=== PATIENT | female | born 1980 | race Caucasian/White ===

== ENCOUNTER 2017-01-10 20:48 | Observation (INO) | payer OTHER ==
[~2017-01-10] VITALS: Ht 165.1 cm; Wt 79.1 kg
[~2017-01-10 20:48] MED LIST: BIRTH CONTROL PILLS; KEFLEX500 MG PO
[2017-01-10 22:31] LABS: HEMATOCRIT 41.8 % (37.0-47.0); HEMOGLOBIN 14.8 g/dl (12.0-16.0); IMMATURE GRANULOCYTES 0.4 % (0.0-1.0); MEAN CELL VOLUME 92.3 fL CALC (80.0-100.0); MEAN CORPUSCULAR HGB 32.7 pG CALC (26.0-32.0); MEAN CORPUSCULAR HGB CONC 35.4 g/L CALC (32.0-36.0); NEUT# 6.91 thou/uL (2.00-7.15); RED BLOOD COUNT 4.53 mill/uL (4.20-5.60); RED CELL DISTRI WIDTH 12.4 % (11.5-15.5)
[2017-01-10 22:54] LABS: URINE BILIRUBIN - DIPSTICK NEGATIVE (NEGATIVE); URINE BLOOD DIPSTICK LARGE (NEGATIVE); URINE CLARITY CLEAR; URINE COLOR YELLOW; URINE GLUCOSE - DIPSTICK NEGATIVE (NEGATIVE); URINE KETONE NEGATIVE (NEGATIVE); URINE LEUK ESTERASE NEGATIVE (NEGATIVE); URINE NITRITE - DIPSTICK NEGATIVE (Negative); URINE PROTEIN - DIPSTICK NEGATIVE (NEG-TRACE); URINE UROBILINOGEN - DIPSTICK 0.2 E.U./dL (0.2)
[2017-01-10 22:59] LABS: ALBUMIN 4.6 g/dL (3.2-5.0); ALKALINE PHOSPHATASE 83 u/l (38-126); ANION GAP 20 (6-22 (CALC)); BILIRUBIN, TOTAL 0.8 mg/dL (0.0-1.4); BUN 12 mg/dL (7-17); BUN/CREATININE RATIO 16 (12-20 (CALC)); CARBON DIOXIDE 18 mmol/l (22-30); CHLORIDE 106 mmol/l (95-108); CREATININE 0.8 mg/dL (0.5-1.0); ETHYL ALCOHOL 219 mg/dl (0-30); GFR > 60 ML/MIN (>=60 (CALC)); GFR FOR AFR.AMER. > 60 ML/MIN (>=60 (CALC)); GLUCOSE 100 mg/dL (65-105); POTASSIUM 3.5 mmol/l (3.5-5.1); SGOT/AST 25 u/l (14-36); SGPT/ALT 28 u/l (9-52); SODIUM 141 mmol/l (137-146); TOTAL PROTEIN 7.4 g/dL (6.3-8.2)
[2017-01-10 23:01] LABS: BARBITURATES NEGATIVE (NEGATIVE); COCAINE NEGATIVE (NEGATIVE); METHADONE NEGATIVE (NEGATIVE); OXCYCODONE NEGATIVE (NEGATIVE); TETRAHYDROCANNABIONOL NEGATIVE (NEGATIVE); TRICYLIC ANTIDEPRESSANTS NEGATIVE (NEGATIVE)
[2017-01-10 23:18] LABS: URINE WBC 0-2 WBC/hpf (0-5)
[2017-01-11 00:36] VITALS: BP 150/107
[2017-01-11 04:00] VITALS: BP 143/83
[2017-01-11 07:37] LABS: ANION GAP 14 (6-22 (CALC)); BUN 7 mg/dL (7-17); BUN/CREATININE RATIO 11 (12-20 (CALC)); CALCIUM 8.3 mg/dL (8.4-10.2); CARBON DIOXIDE 25 mmol/l (22-30); CHLORIDE 106 mmol/l (95-108); CREATININE 0.6 mg/dL (0.5-1.0); GFR > 60 ML/MIN (>=60 (CALC)); GFR FOR AFR.AMER. > 60 ML/MIN (>=60 (CALC)); GLUCOSE 83 mg/dL (65-105); POTASSIUM 3.8 mmol/l (3.5-5.1); SODIUM 141 mmol/l (137-146)
[2017-01-11 08:00] VITALS: BP 135/88
== END 2017-01-11 13:35 | disposition home or self-care (01) | DRG 897 ==
LOC: ED 20:48 → ED-I 23:20 → ED 23:52 → ICU 23:53
PROVIDERS: Emergency Medicine; ADMIT Internal Medicine; ATTEND Internal Medicine
DX: F10.129 Alcohol abuse with intoxication, unspecified (principal); F32.9 Major depressive disorder, single episode, unspecified; F17.210 Nicotine dependence, cigarettes, uncomplicated; S50.11XA Contusion of right forearm, initial encounter; S50.02XA Contusion of left elbow, initial encounter; Y90.7 Blood alcohol level of 200-239 mg/100 ml; F43.29 Adjustment disorder with other symptoms; X58.XXXA Exposure to other specified factors, initial encounter; Z87.898 Personal history of other specified conditions

== ENCOUNTER 2019-05-15 | Emergency (ER) | payer MEDICAID ==
[2019-05-15] MEDS ORDERED: ZOFRAN4 MG/TAB PO (17:36)
[2019-05-15] MEDS ORDERED: VENTOLIN HFA IN (17:36)
[2019-05-15] MEDS ORDERED: TESSALON PER100 MG PO (17:36)
[2019-05-15] MEDS ORDERED: MEDDOSEPAK PO (17:36)
== END 2019-05-15 17:45 | disposition home or self-care (01) ==
DX: B34.9 Viral infection, unspecified (principal); I10 Essential (primary) hypertension; F17.210 Nicotine dependence, cigarettes, uncomplicated

== ENCOUNTER 2019-07-30 | Emergency (ER) | payer MEDICAID ==
[~2019-07-30] MED LIST changes: +MEDDOSEPAK PO; +TESSALON PER100 MG PO; +VENTOLIN HFA IN; +ZOFRAN4 MG/TAB PO
[2019-07-30] MEDS ORDERED: ZOLOFT50 MG PO (14:03)
[2019-07-30] MEDS ORDERED: CHERATUSSIN PO (15:41)
== END 2019-07-30 16:20 | disposition home or self-care (01) ==
DX: J06.9 Acute upper respiratory infection, unspecified (principal); I10 Essential (primary) hypertension; F17.200 Nicotine dependence, unspecified, uncomplicated

== ENCOUNTER 2021-06-15 20:31 | Emergency (ER) | payer MEDICAID ==
[~2021-06-15] VITALS: Ht 165.1 cm; Wt 82.0 kg
[~2021-06-15 20:31] MED LIST changes: +CHERATUSSIN PO; +ZOLOFT50 MG PO
[2021-06-15 21:34] VITALS: BP 160/18
== END 2021-06-15 21:44 | disposition home or self-care (01) ==
LOC: ED 20:31
DX: Z03.823 Encounter for observation for suspected inserted (injected) foreign body ruled out (principal); I10 Essential (primary) hypertension; F17.200 Nicotine dependence, unspecified, uncomplicated

== ENCOUNTER 2023-01-20 17:59 | Emergency (ER) | payer SELFPAY ==
[2023-01-20] VITALS (10 sets, daily range): BP systolic 136–179; BP diastolic 75–153
[~2023-01-20] VITALS: Ht 165.1 cm; Wt 81.6 kg
[2023-01-20 19:02] LABS: BASO% 0.7 % (0-3); EOS% 3.2 % (0-8); HEMATOCRIT 40.2 % (37.0-47.0); HEMOGLOBIN 13.8 g/dl (12.0-16.0); IMMATURE GRANULOCYTES 0.1 % (0.0-5.0); LYMPH% 29.4 % (15-41); MEAN CELL VOLUME 96.6 fL CALC (80.0-100.0); MEAN CORPUSCULAR HGB 33.2 pG CALC (26.0-32.0); MEAN CORPUSCULAR HGB CONC 34.3 g/dL CAL (32.0-36.0); MONO% 9.5 % (2-13); NEUT# 4.59 thou/uL (2.00-7.15); NEUT% 57.1 % (42-76); RED BLOOD COUNT 4.16 mill/uL (4.20-5.60)
[2023-01-20 19:10] LABS: ALKALINE PHOSPHATASE 65 u/l (38-126); ANION GAP 12 (6-22 (CALC)); BILIRUBIN, TOTAL 0.6 mg/dL (0.02-1.3); BUN 13 mg/dL (7-17); BUN/CREATININE RATIO 16 (12-20 (CALC)); CARBON DIOXIDE 22 mmol/l (22-30); CHLORIDE 109 mmol/l (95-108); CREATININE 0.8 mg/dL (0.5-1.0); ETHYL ALCOHOL 0 mg/dl (0-30); GFR FOR AFR.AMER. > 60 ML/MIN (>=60 (CALC)); GFR OTHER RACES > 60 ML/MIN (>=60 (CALC)); POTASSIUM 3.7 mmol/l (3.5-5.1); SODIUM 139 mmol/l (137-146); TOTAL PROTEIN 7.2 g/dL (6.3-8.2)
[2023-01-20 19:11] LABS: SGOT/AST 55 u/l (14-36)
[2023-01-20 19:44] LABS: URINE BLOOD DIPSTICK Negative (NEGATIVE); URINE COLOR Yellow; URINE GLUCOSE - DIPSTICK Negative (NEGATIVE); URINE KETONE Trace mg/dL (NEGATIVE); URINE LEUK ESTERASE Negative (NEGATIVE); URINE NITRITE - DIPSTICK Negative (Negative); URINE PH 5.5 (4.5-8.0); URINE PROTEIN - DIPSTICK 30 mg/dL (NEG-TRACE); URINE SPECIFIC GRAVITY >=1.030; URINE UROBILINOGEN - DIPSTICK 0.2 E.U./dL (0.2)
[2023-01-20 19:52] LABS: URINE SQUAMOUS EPITHELIAL CELL MANY EPI/hpf (0-FEW); URINE WBC 0-2 WBC/hpf (0-5)
[2023-01-21 10:37] VITALS: BP 143/87
== END 2023-01-21 10:38 | DRG 951 ==
LOC: ED 17:59
PROVIDERS: Emergency Medicine
DX: R46.2 Strange and inexplicable behavior (principal); R44.3 Hallucinations, unspecified; I10 Essential (primary) hypertension; F17.200 Nicotine dependence, unspecified, uncomplicated; Z20.822 Contact with and (suspected) exposure to COVID-19
CPT/HCPCS: J2060

== ENCOUNTER 2023-07-06 09:45 | Emergency (ER) | payer SELFPAY ==
[~2023-07-06] VITALS: Ht 165.1 cm; Wt 81.6 kg
[2023-07-06] VITALS (15 sets, daily range): BP systolic 122–165; BP diastolic 64–101
[~2023-07-06 09:45] MED LIST changes: +PREDNISONE50 MG PO; +VENTOLIN HFA108 MCG PO; +ZPAK PO
[2023-07-06 10:32] LABS: BASO% 0.6 % (0-3); EOS% 1.9 % (0-8); HEMATOCRIT 45.7 % (37.0-47.0); IMMATURE GRANULOCYTES 0.1 % (0.0-5.0); LYMPH% 25.8 % (15-41); MEAN CELL VOLUME 95.6 fL CALC (80.0-100.0); MEAN CORPUSCULAR HGB 33.3 pG CALC (26.0-32.0); MEAN CORPUSCULAR HGB CONC 34.8 g/dL CAL (32.0-36.0); MONO% 6.2 % (2-13); NEUT# 4.5 thou/uL (2.00-7.15); NEUT% 65.4 % (42-76); RED BLOOD COUNT 4.78 mill/uL (4.20-5.60); RED CELL DISTRI WIDTH 12.4 % (11.5-15.5)
[2023-07-06 10:42] LABS: HEMOGLOBIN 15.9 g/dl (12.0-16.0)
[2023-07-06 10:58] LABS: ALBUMIN 4.1 g/dL (3.2-5.0); ALKALINE PHOSPHATASE 64 u/l (38-126); ANION GAP 11 (6-22 (CALC)); BILIRUBIN, TOTAL 0.6 mg/dL (0.02-1.3); BUN 12 mg/dL (7-17); BUN/CREATININE RATIO 16 (12-20 (CALC)); CARBON DIOXIDE 21 mmol/l (22-30); CHLORIDE 109 mmol/l (95-108); CREATININE 0.8 mg/dL (0.5-1.0); GFR FOR AFR.AMER. > 60 ML/MIN (>=60 (CALC)); GFR OTHER RACES > 60 ML/MIN (>=60 (CALC)); POTASSIUM 3.9 mmol/l (3.5-5.1); SGOT/AST 26 u/l (14-36); SODIUM 137 mmol/l (137-146); TOTAL PROTEIN 7.1 g/dL (6.3-8.2)
[2023-07-06 11:29] LABS: TSH, 3RD GENERATION 0.51 uIU/mL (0.47 - 4.68)
== END 2023-07-06 13:47 | disposition home or self-care (01) | DRG 310 ==
LOC: ED 09:45
PROVIDERS: Family Medicine
DX: R00.2 Palpitations (principal); I10 Essential (primary) hypertension; F17.210 Nicotine dependence, cigarettes, uncomplicated; Z20.822 Contact with and (suspected) exposure to COVID-19